=== PATIENT | female | born 1940 | race Caucasian/White ===

== ENCOUNTER → 2022-01-29 12:41 | Outpatient (CLI) | payer OTHER, SELFPAY ==
--- NOTE | 2022-01-29 | DI.US.S_ITS ---
ULTRASOUND OF LEFT BREAST: 01/29/2022 CLINICAL: Nipple discharge, left breast, not bloody. Comparison is made to exams dated: 01/29/2022 mammogram - [facility], 06/26/2017 mammogram, and 06/30/2013 mammogram - [facility]. Color flow and real-time ultrasound of the left breast were performed. Valdes scale images of the real-time examination were reviewed. No significant abnormalities were seen sonographically in the left breast. IMPRESSION: BENIGN There is no sonographic evidence of malignancy. There is no abnormality seen in the left breast to correspond with the area of clinical concern and non-bloody discharge from the nipple which likely represent physiological discharge, however, recommend clinical follow up for persistent or worsening symptoms, or development of any clinically suspicious findings. A 1 year screening mammogram is recommended. Findings and recommendations were conveyed to the patient during today's evaluation. This exam was interpreted at Station ID: [id number]. Electronically Signed By: Tima Fernandez M.D. aty/:01/29/2022 14:43:59 letter sent: Clinical Evaluation Ultrasound BI-RADS: 2 Benign
--- NOTE | 2022-01-29 | DI.MG.S_ITS ---
BILATERAL DIGITAL DIAGNOSTIC MAMMOGRAM 3D/2D WITH AUGMENTATION: 01/29/2022 CLINICAL: Nipple discharge, left breast, not bloody. Family history of breast cancer. Comparison is made to exam dated: 06/26/2017 mammogram - [facility]. The tissue of both breasts is heterogeneously dense. This may lower the sensitivity of mammography. No significant masses, calcifications, or other findings are seen in either breast. IMPRESSION: INCOMPLETE: NEEDS ADDITIONAL IMAGING EVALUATION The implants are intact and have a stable appearance. There is no abnormality seen in the left breast to correspond with the area of clinical concern and non-bloody nipple discharge, however, an ultrasound is recommended for further evaluation and is scheduled to immediately follow this examination. This exam was interpreted at Station ID: [id number]. NOTE: For mammograms, a report in lay terms will be sent to the patient. Approximately 15% of breast malignancies will not be visualized mammographically. In the management of a palpable breast mass, a negative mammogram must not discourage biopsy of a clinically suspicious lesion. Electronically Signed By: Tima Fernandez M.D. aty/:01/29/2022 14:02:27 ACR BI-RADS Category 0: Incomplete [id number]
== END ==
PROVIDERS: PCP Registered Nurse; Referring Provider Emergency Medicine; Visit Provider Emergency Medicine
DX: N64.52 Nipple discharge (principal); R92.8 Other abnormal and inconclusive findings on diagnostic imaging of breast; Z80.3 Family history of malignant neoplasm of breast; Z98.82 Breast implant status
CPT/HCPCS: 76642; 77066; G0279

== ENCOUNTER → 2023-07-30 14:39 | Outpatient (CLI) | payer OTHER, SELFPAY ==
--- NOTE | 2023-07-30 | DI.MG.S_ITS ---
BILATERAL DIGITAL SCREENING MAMMOGRAM 3D/2D WITH CAD WITH AUGMENTATION: 07/30/2023 CLINICAL: Routine screening. Family history of breast cancer. Comparison is made to exams dated: 01/29/2022 mammogram - [facility], 06/26/2017 mammogram, and 06/30/2013 mammogram - [facility]. Both breasts are heterogeneously dense, which may obscure small masses (category c / 51-75% glandular tissue). Current study was also evaluated with a Computer Aided Detection (CAD) system. Bilateral subpectoral saline breast implants are intact. No significant masses, calcifications, or other findings are seen in either breast. IMPRESSION: BENIGN Bilateral intact subpectoral saline implants. No mammographic evidence of malignancy. A 1 year screening mammogram is recommended. Based on the Tyrer Cuzick model (a risk assessment model) the patient's lifetime risk is 2.6% and her 10 year risk is 0.0%. According to the ACR, ACS, and NCCN guidelines, an annual breast MRI exam along with mammogram is recommended if the patient's lifetime risk is 20% or greater. This exam was interpreted at Station ID: [id number]. NOTE: For mammograms, a report in lay terms will be sent to the patient. Approximately 15% of breast malignancies will not be visualized mammographically. In the management of a palpable breast mass, a negative mammogram must not discourage biopsy of a clinically suspicious lesion. Electronically Signed By: Mag Murphy M.D. esb/:07/31/2023 12:19:15 letter sent: Normal Exam ACR BI-RADS Category 2: Benign Finding(s) 3342F
== END ==
PROVIDERS: PCP Registered Nurse; Referring Provider Nurse Practitioner Family; Visit Provider Nurse Practitioner Family
DX: Z12.31 Encounter for screening mammogram for malignant neoplasm of breast (principal); Z80.3 Family history of malignant neoplasm of breast
CPT/HCPCS: 77063; 77067